=== PATIENT | female | born 2000 | race American Indian/Alaskan Native ===

== ENCOUNTER 2021-09-27 19:31 | Emergency (ER) | payer OTHER ==
[~2021-09-27] VITALS: Ht 152.4 cm; Wt 61.2 kg
[2021-09-27] MEDS ORDERED: HYDROCODON-ACE1 EA10 PO (22:03)
[2021-09-27] MEDS ORDERED: AMOX TR-K CLV1 EAC1 PO (22:03)
== END 2021-09-27 22:38 | disposition home or self-care (01) ==
LOC: ED 19:31
DX: S02.2XXA Fracture of nasal bones, initial encounter for closed fracture (principal); S02.32XA Fracture of orbital floor, left side, initial encounter for closed fracture; Y04.0XXA Assault by unarmed brawl or fight, initial encounter
CPT/HCPCS: 12011; 70450; 70486; 71046; 72125; 73140; 90471; 90714; 99284-25; J1170; J2405

== ENCOUNTER 2025-05-15 09:39 | Emergency (ER) | payer OTHER ==
[~2025-05-15] VITALS: Ht 152.4 cm; Wt 51.0 kg
[~2025-05-15 09:39] MED LIST: AMOX TR-K CLV1 EAC1 PO; HYDROCODON-ACE1 EA10 PO
[2025-05-15 10:21] LABS: BASOPHILS 0.5 % (0.1-1.2); EOSINOPHILS 0.4 % (0.7-5.8); LYMPHOCYTES 13.6 % (19.3-51.7); MCH 29.4 PG (25.6-32.2); MCHC 33.2 g/dL (32.2-35.5); MCV 88.8 fL (79.4-94.8); MONOCYTES 7.8 % (4.7-12.5); NEUTROPHILS 76.8 % (34.0-71.1); RBC 4.89 M/uL (3.93-5.22)
[2025-05-15 10:33] LABS: ALT (SGPT) 22.0 U/L (14-59); AST (SGOT) 23.0 U/L (15-37); GLOMERULAR FILTRATION RATE,EST 135.0 mL/min (>60); PROTEIN, TOTAL 6.9 g/dL (6.4-8.2); UREA NITROGEN 14.0 mg/dL (7-18)
[2025-05-15 10:53] LABS: BLOOD/HGB, URINE NEGATIVE (Negative); KETONE, URINE >=80 (Negative); LEUK ESTERASE, URINE NEGATIVE (negative); NITRITE, URINE NEGATIVE (negative)
[2025-05-15 11:14] LABS: AMPHETAMINES, URINE NEGATIVE (NEGATIVE); BARBITURATES, URINE NEGATIVE (NEGATIVE); BENZODIAZEPINE, URINE NEGATIVE (NEGATIVE); CANNABINOID, URINE NEGATIVE (NEGATIVE); COCAINE, URINE NEGATIVE (NEGATIVE); ECSTASY, URINE NEGATIVE (NEGATIVE); FENTANYL, URINE NEGATIVE (NEGATIVE); METHADONE, URINE NEGATIVE (NEGATIVE); OPIATES, URINE NEGATIVE (NEGATIVE); OXYCODONE, URINE NEGATIVE (NEGATIVE); PHENCYCLIDINE, URINE NEGATIVE (NEGATIVE)
[2025-05-15] MEDS ORDERED: SODIUM CHLORIDE 0.9% 1,000 ML IV PRN (11:15)
[2025-05-15 12:38] VITALS: BP 102/77
== END 2025-05-15 12:30 | disposition other institution, planned readmission (95) ==
LOC: ED 09:39
PROVIDERS: Emergency Medicine
DX: E86.0 Dehydration (principal); E11.9 Type 2 diabetes mellitus without complications
CPT/HCPCS: 36415; 80053; 80307; 81003; 85025; 99283; J7030